=== PATIENT | male | born 1960 | race Caucasian/White ===

== ENCOUNTER 2021-06-17 11:56 | Outpatient (CLI) | payer OTHER, SELFPAY ==
[2021-06-17 12:23] VITALS: BP 136/83; PULSE 100; RESP 18; TEMP 36.8; O2SAT 84
--- NOTE | 2021-06-17 12:25 | PC.NURSE ---
Patient assessed prior to Covid infusion and did not meet criteria due to vital signs. Patient vitals as follows, BP: 136/83, O2: 84% (ranged from 82-86%), Temp: 98.2, HR: 101 bpm, and RR 18. Patient placed on 2L of oxygen via nasal cannula, but O2 saturation didn't go over 91%. Dr. Bliss notified. Patient taken to ER per phone conversation with the doctor. Patient's notified.
[2021-06-17 21:22] LABS: Glucose Point of Care 308 mg/dL (70-110)
[2021-06-21 07:57] LABS: Glucose Point of Care 341 mg/dL (70-110)
[2021-06-21 07:57] LABS: Glucose Point of Care 322 mg/dL (70-110)
[2021-06-21 08:06] LABS: Glucose Point of Care 249 mg/dL (70-110)
[2021-06-21 08:06] LABS: Glucose Point of Care 282 mg/dL (70-110)
[2021-06-21 08:06] LABS: Glucose Point of Care 297 mg/dL (70-110)
[2021-06-21 10:28] LABS: Glucose Point of Care 400 mg/dL (70-110)
== END 2021-06-17 11:57 | disposition home or self-care (01) ==
PROVIDERS: PCP Family Medicine; Visit Provider Nurse Practitioner Family
DX: U07.1 COVID-19 (principal)
CPT/HCPCS: 36416; 82962

== ENCOUNTER 2021-06-17 12:36 | Inpatient (IN) | payer OTHER, SELFPAY ==
[2021-06-17] VITALS (13 sets, daily range): BP systolic 123–151; BP diastolic 78–84; PULSE 90–105; RESP 19–24; TEMP 36.9–38.3; O2SAT 84–96; BMI 27.3; BMI 28.0
--- NOTE | 2021-06-17 13:11 | W.ED.COVID ---
HPI - COVID General: Chief Complaint: COVID symptoms Stated Complaint: WAS HERE FOR BAM: O2 84 Time Seen by Provider: 06/17/21 13:11 Triage information: Has fever, cough or shortness of breath. No known COVID + exposure last 14 days History of Present Illness: HPI Narrative: Mr. Jenkins is a 61-year-old gentleman without significant past medical history presents the emerge department due to hypoxemia. Symptom onset of Covid-like symptoms was approximately 5 days ago after his was Covid positive. He was subsequently tested on Tuesday without further evaluation and test positive. He showed up today to undergo monoclonal antibody treatment however was found to be hypoxemic to 84% on room air. He endorses otherwise typical Covid symptoms. Overall the course of symptoms has remained about the same. He has shortness of breath cough, malaise. No associated chest pain. No other significant changes in health. No other specific exacerbating relieving factors that the patient identifies. COVID Results: No Data to Display Review of Systems General: Reports: 10 or more systems reviewed and unremarkable except in HPI and below Narrative: CONSTITUTIONAL: Positive for fever, fatigue, weakness EYES - denies pain, denies loss of vision EARS - denies ear issues. NOSE - denies congestion or rhinorrhea. THROAT - denies sore throat or difficulty swallowing. CARDIOVASCULAR - denies chest pain and palpitations RESPIRATORY -positive for shortness of breath and cough GASTROINTESTINAL - denies abdominal pain, positive for nausea vomiting, no changes in bowel habits GENITOURINARY - denies dysuria or urinary frequency MUSCULOSKELETAL- denies deformity. Generalized aches and pains. SKIN - denies rashes or new changed skin lesions NEUROLOGIC - denies focal weakness or sensory changes HEMATOLOGIC/LYMPHATIC - denies easy bruising or lymphadenopathy. Physical Exam Narrative: EXAM NARRATIVE: GENERAL/CONSTITUTIONAL -somewhat ill-appearing. No acute distress. Eyes - PERRL, no conjunctival injection ENMT - Atraumatic external nose and ears. Dry mucous membranes NECK - supple. trachea midline CARDIOVASCULAR - regular rate and rhythm. Peripheral pulses 2+ and equal RESPIRATORY -coarse to auscultation bilaterally. No retractions or accessory muscle use. ABDOMEN/GI - Nontender/Nondistended. No tenderness to percussion or evidence of peritonitis MSK - Extremities without obvious deformity or tenderness to palpation SKIN - Warm, Dry NEURO - alert and appropriately oriented. strength and sensation intact. Moves all extremities equally. PSYCH - Appropriate mood and affect Course ED course: - Patient was seen and evaluated by me at bedside - Patient placed on cardiac monitors, IV access obtained - Initial evaluation notable for somewhat ill appearance, supplemental oxygen in place. - Labs notable for mild leukocytosis, ABG with pH 7.43. Chemistry panel with likely evidence of dehydration. Delta troponin negative. - Imaging notable for ED read of chest x-ray with bilateral patchy infiltrates. - Upon serial reexamination after treatment the patient was mildly improved - Based on patient history, evaluation, labs, and imaging as interpreted the most likely cause of the patient's condition is COVID-19 pneumonia resulting in hypoxemia. - The results of ED evaluation were discussed with the patient including plan for admission due to requirement for level of care not available if discharged to prevent significant worsening/deterioration. -Hospitalist service contacted and agreed to admit the patient - Patient was admitted without further deterioration or significant events. Vital Signs: Vital signs: Vital Signs Temperature 97.5 F L 06/19/21 12:00 Pulse Rate 80 06/19/21 12:00 Respiratory Rate 16 06/19/21 12:00 Blood Pressure 98/68 06/19/21 12:00 Pulse Oximetry 92 06/19/21 12:00 MDM - COVID Medical Records: Attestation: I reviewed the patient's medical records. Lab Data: Attestation: I reviewed the patient's lab results. Labs: Lab Results 06/17/21 06/17/21 06/17/21 Range/Units 13:52 13:52 13:52 WBC 11.1 H (4.0-10.0) 10^3/ uL RBC 4.64 (4.1-5.3) 10^6/u L Hgb 13.6 (11.7-16.6) g/dL Hct 40.0 L (42.0-52.0) % MCV 86.2 (80-94) fl MCH 29.3 (28.0-34.0) pg MCHC 34.0 (30.0-36.0) g/dL RDW 12.5 (12.1-15.1) % Plt Count 234 (130-400) 10^3/c mm MPV 10.5 H (7.4-10.4) fL Neut % (Auto) 68.4 % Lymph % (Auto) 24.6 % [place] % (Auto) 6.4 % Eos % (Auto) 0.0 % Baso % (Auto) 0.2 % Neut # (Auto) 7.58 (1.8-7.7) 10^3/u L Lymph # (Auto) 2.7 (0.8-4.8) 10^3/u L [place] # (Auto) 0.7 (0.2-0.9) 10^3/u L Eos # (Auto) 0.0 (0.0-0.8) 10^3/u L Baso # (Auto) 0.0 (0.0-0.1) 10^3/u L Nucleated RBC % (a uto) 0 % Nucleated RBCs # 0.0 /100WBC Specimen Type Sample Site ABG pH (7.35-7.45) ABG pCO2 (35-45) mmHg ABG pO2 (80.0-100.0) mmH g ABG HCO3 (22-26) mmol/L ABG Base Excess (-2.0-2.0) mmol/ L Evaristo Test Hematocrit (42-52) % O2 Delivery Device O2 Liters/Min % FiO2 % Coroner Forensic Technician ID Sodium 127 L (136-145) mmol/L Potassium 4.3 (3.5-5.1) mmol/L Chloride 90 L (98-107) mmol/L Carbon Dioxide 19 L (22-29) mmol/L Anion Gap 22.3 H (5-19) BUN 23 (8-23) mg/dL Creatinine 0.7 (0.7-1.2) mg/dL GFR Calculation 115.0 (90-130) mL/min Glucose 375 H (65-115) mg/dL Calculated Osmolal ity 283 L (285-295) mOsm/k g Lactic Acid (0.5-2.2) mmol/L Calcium 8.3 L (8.5-10.5) mg/dL Total Bilirubin 0.4 (0.15-1.2) mg/dL AST 45 H (0-40) U/L ALT 38 (0-41) U/L Alkaline Phosphata se 93 (40-130) IU/L Troponin T Baselin e 11 (0-15) ng/L Troponin T 120 Min [place] (0-15) ng/L Delta Troponin T (0-10) ABS# C-Reactive Protein 42.3 H (0.0-4.9) mg/L Total Protein 6.8 (6.6-8.7) g/dL Albumin 3.8 (3.5-5.2) g/dL Globulin 3.0 (1.3-4.6) g/dL Procalcitonin 0.50 (0-0.5) ng/mL 06/17/21 06/17/21 06/17/21 Range/Units 14:05 16:12 17:43 WBC (4.0-10.0) 10^3/ uL RBC (4.1-5.3) 10^6/u L Hgb (11.7-16.6) g/dL Hct (42.0-52.0) % MCV (80-94) fl MCH (28.0-34.0) pg MCHC (30.0-36.0) g/dL RDW (12.1-15.1) % Plt Count (130-400) 10^3/c mm MPV (7.4-10.4) fL Neut % (Auto) % Lymph % (Auto) % [place] % (Auto) % Eos % (Auto) % Baso % (Auto) % Neut # (Auto) (1.8-7.7) 10^3/u L Lymph # (Auto) (0.8-4.8) 10^3/u L [place] # (Auto) (0.2-0.9) 10^3/u L Eos # (Auto) (0.0-0.8) 10^3/u L Baso # (Auto) (0.0-0.1) 10^3/u L Nucleated RBC % (a uto) % Nucleated RBCs # /100WBC Specimen Type Arterial Sample Site Brachial, right ABG pH 7.43 (7.35-7.45) ABG pCO2 31.8 L (35-45) mmHg ABG pO2 71.6 L (80.0-100.0) mmH g ABG HCO3 21.0 L (22-26) mmol/L ABG Base Excess -2.5 L (-2.0-2.0) mmol/ L Evaristo Test Pos Hematocrit 40.5 L (42-52) % O2 Delivery Device Nc O2 Liters/Min 4.0 % FiO2 36.0 % Coroner Forensic Technician ID Bd Sodium (136-145) mmol/L Potassium (3.5-5.1) mmol/L Chloride (98-107) mmol/L Carbon Dioxide (22-29) mmol/L Anion Gap (5-19) BUN (8-23) mg/dL Creatinine (0.7-1.2) mg/dL GFR Calculation (90-130) mL/min Glucose (65-115) mg/dL Calculated Osmolal ity (285-295) mOsm/k g Lactic Acid 1.1 (0.5-2.2) mmol/L Calcium (8.5-10.5) mg/dL Total Bilirubin (0.15-1.2) mg/dL AST (0-40) U/L ALT (0-41) U/L Alkaline Phosphata se (40-130) IU/L Troponin T Baselin e (0-15) ng/L Troponin T 120 Min [place] 10.07 (0-15) ng/L Delta Troponin T -0.93 L (0-10) ABS# C-Reactive Protein (0.0-4.9) mg/L Total Protein (6.6-8.7) g/dL Albumin (3.5-5.2) g/dL Globulin (1.3-4.6) g/dL Procalcitonin (0-0.5) ng/mL EKG Data: EKG 1: Attestation: I personally reviewed and interpreted this EKG as follows: EKG interpretation date: 06/17/21 EKG interpretation time: 13:45 Prior EKG tracings: not available for review Ischemic changes: non-specific ST-T wave changes Interpretation: Twelve-lead EKG shows a regular sinus rhythm at a rate of 92. NV interval 160, QRS duration 84, QTc 415. Normal axis. Interpretation: Sinus rhythm, nonspecific ST segment abnormalities in lead III COVID Results: No Data to Display Discharge Plan Discharge Patient Disposition: Admitted As Inpatient Admit Provider: Dylan Nazario Coding Level of Care Code ED Dielectric Tester for [facility] Imani
--- NOTE | 2021-06-17 13:35 | XR_ITS ---
WS: [id number] Portable AP upright chest, 06/17/2021 Clinical Data: covid Comparison: None. Findings: There are moderate bilateral patchy opacities throughout both lungs consistent with acute p neumonia. No nodules, masses or effusions are seen. The heart size is normal. The pulmonary vasculari ty is not remarkable. XR/XR chest 1V portable [id number] Impression: Bilateral patchy opacities in both lungs most consistent with pneumonia.
--- NOTE | 2021-06-17 13:36 | ECG_ITS ---
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 Measurements Intervals [place] Rate: 92 P: 52 [place]: 160 QRS: 52 QRSD: 84 T: 33 QT: 334 QTc: 415 Interpretive Statements SINUS RHYTHM No previous ECG available for comparison Electronically Signed On 06-17-2021 19:38:04 CDT by Ethel Gallo M.D. [id number]
[2021-06-17 14:01] LABS: Basophils % 0.2 %; Hemoglobin 13.6 g/dL (11.7-16.6); Lymphocytes # 2.7 10^3/uL (0.8-4.8); Lymphocytes % 24.6 %; Mean Corpuscular Hemoglobin 29.3 pg (28.0-34.0); Mean Corpuscular Volume 86.2 fl (80-94); Mean Platelet Volume 10.5 fL (7.4-10.4); Monocytes # 0.7 10^3/uL (0.2-0.9); Monocytes % 6.4 %; Neutrophils # 7.58 10^3/uL (1.8-7.7); Neutrophils % 68.4 %; Nucleated Red Blood Cells % 0 %; Platelet Count 234 10^3/cmm (130-400); Red Blood Count 4.64 10^6/uL (4.1-5.3); Red Cell Distribution Width 12.5 % (12.1-15.1); White Blood Count 11.1 10^3/uL (4.0-10.0)
--- NOTE | 2021-06-17 14:12 | PC.PHAR ---
PT STATES HE TAKES CARE OF HIS OWN MEDICATIONS-PT STATES HE HASNT TAKEN MEDS SINCE Tue06/15/21-PT STATES HE TAKES ALEVE 4 TABS (880MG) EVERY AM-
[2021-06-17 14:38] LABS: Lactic Sepsis W/Reflex 1.1 mmol/L (0.5-2.2)
[2021-06-17 14:41] LABS: Troponin(5th) Baseline 11 ng/L (0-15)
[2021-06-17 15:01] LABS: Alanine Aminotransferase 38 U/L (0-41); Albumin Level 3.8 g/dL (3.5-5.2); Alkaline Phosphatase 93 IU/L (40-130); Potassium 4.3 mmol/L (3.5-5.1)
--- NOTE | 2021-06-17 15:07 | PC.NURSE ---
PATIENT RESTING IN BED. PATIENT REQUESTED TO USE THE RESTROOM. A URINAL WAS BROUGHT TO PATIENT. PATIENT HAS NO FURTHER NEEDS AT THIS TIME.
[2021-06-17 15:14] LABS: Blood Urea Nitrogen 23 mg/dL (8-23); Total Bilirubin 0.4 mg/dL (0.15-1.2); Total Protein 6.8 g/dL (6.6-8.7)
[2021-06-17 15:21] LABS: Anion Gap 22.3 (5-19); Carbon Dioxide 19 mmol/L (22-29); Chloride 90 mmol/L (98-107); Glucose 375 mg/dL (65-115); Osmolality Calculated 283 mOsm/kg (285-295); Sodium 127 mmol/L (136-145)
[2021-06-17 15:22] LABS: Aspartate Amino Transferase 45 U/L (0-40); C Reactive Protein 42.3 mg/L (0.0-4.9); Calcium 8.3 mg/dL (8.5-10.5)
[2021-06-17] MEDS: sodium chloride 0.9% 500 ML 999 ML IV (15:55)
[2021-06-17 16:43] LABS: Troponin 5 2HR 10.07 ng/L (0-15)
[2021-06-17 16:49] LABS: Troponin 5 2HR Delta -0.93 ABS# (0-10)
[2021-06-17 17:54] LABS: ABG PCO2 31.8 mmHg (35-45); ABG PH Result 7.43 (7.35-7.45); Arterial Blood Gas Hematocrit 40.5 % (42-52); Base Excess ABG -2.5 mmol/L (-2.0-2.0); Blood Gas Allen Test Pos; Blood Gas Operator Identificat BD; Blood Gas Sample Site Brachial, right; Blood Gas Sample Type Arterial; Oxygen Device NC; PO2 ABG 71.6 mmHg (80.0-100.0)
--- NOTE | 2021-06-17 18:08 | PC.NURSE ---
ENTERED PATIENT ROOM AND SPOKE TO PATIENT'S SPOUSE ON PHONE. PATIENT OXYGEN SATURATION DROPPED TO 87 WHILE TALKING ON THE PHONE WITH HIS ON 4 L O2 NC.
--- NOTE | 2021-06-17 18:11 | PM.HP ---
Providers/Chief Complaint Primary Care Provider: Oc Canales MD Chief Complaint: WAS HERE FOR BAM: O2 84 History of Present Illness Scottie Jenkins is a 61 year old male with PMH of hypothyroidism and DM came in with c/o worsening sob as well as cough , he tested positive for COVID Couple of days back and was here today at the monoclonal antibody infusion center when he was found to be hypoxic to 84% on room air and was hence sent to the ER. Upon arrival in the ER he was worked up for above mention complain. Imaging studies : Xray chest :B/L patchy opacities in both lungs Pertinent labs : WBC: 11.1 H&H: 13/40 PLT Count : 234 ,Serum Na: 127, Serum K: 4.3 , BUN/SCR : 23/0.7 Procalcitonin:Normal ABG :Ph: 7.43, PCO2: 31, PO2:71.6, FIO2:36% Review of Systems Card: Denies: palpitations, edema, swelling of feet/ankles or orthopnea Resp: Denies: wheezing or pain on inspiration GI: Denies: abdominal pain, nausea, vomiting, diarrhea or constipation : Denies: flank pain or difficulty urinating Musc: Denies: back pain, extremity pain or extremity swelling Neuro: Denies: headache(s), difficulty walking or confusion Medications/Allergies Home Medications Medication Instructions Recorded Confirmed Last Taken Type levothyroxine 100 mcg PO QAM 06/17/21 06/17/21 06/15/21 History metformin 850 mg PO BID 06/17/21 06/17/21 06/15/21 History metoprolol succinate 25 mg PO DAILY 06/17/21 06/17/21 06/15/21 History naproxen sodium [Aleve] 880 mg PO QAM 06/17/21 06/17/21 Unknown History pantoprazole 40 mg PO DAILY 06/17/21 06/17/21 06/15/21 History risperidone 0.25 mg PO BEDTIME 06/17/21 06/17/21 06/15/21 History simvastatin 40 mg PO QPM 06/17/21 06/17/21 06/15/21 History venlafaxine 75 mg PO DAILY 06/17/21 06/17/21 06/15/21 History Allergies Allergy/AdvReac Type Severity Reaction Status Date / Time No Known Allergies Allergy Verified 06/17/21 14:12 Vitals/I&O/Wt Last Vital Signs Temp 98.5 F 06/17/21 13:01 Pulse 102 H 06/17/21 18:10 Resp 19 H 06/17/21 13:01 BP 140/83 06/17/21 16:00 Pulse Ox 90 06/17/21 18:10 Weight last 48 hrs Weight 81.647 kg Physical Exam Const: COMMON NORMALS: patient oriented x3 HENMT: COMMON NORMALS: normocephalic and atraumatic HEAD & SCALP: normocephalic and atraumatic Resp: OTHER: B/L Diminished air entry Cardio: COMMON NORMALS: regular rate, regular rhythm, S1 normal heart sound present, S2 normal heart sound present, No gallops present (Cardio), No murmurs present (Cardio), No rub (Cardio) and Peripheral pulses 2+ throughout RATE: regular rate RHYTHM: regular rhythm HEART SOUNDS: S1 normal heart sound present and S2 normal heart sound present PERIPHERAL PULSES: Peripheral pulses 2+ throughout GI: COMMON NORMALS: Normal to inspection, nondistended, normoactive bowel sounds present, Soft to palpation, non-tender, No hepatosplenomegaly present and no masses AUSCULTATION: Yes normoactive bowel sounds PALPATION: Yes Soft to palpation and Yes No hepatosplenomegaly present RECTAL EXAM: Yes deferred Extremity: COMMON NORMALS: no clubbing, cyanosis or edema and no pedal edema Neuro: COMMON NORMALS: patient oriented x3 Data : 06/17/21 13:52 06/17/21 13:52 A&P Assessment and plan (1) Pneumonia due to COVID-19 virus: COVID PNA Currently on COVID Protocol. D -Dimer ESR CRP LDH Ferritin Monitor ABG Monitor Xray chest Dexamethasone 6mg I.V Daily Zinc Vitamin c Albuterol Inhaler Advair Inhaler Certriaxone 1gm I.V Daily Azithromycin 500 mg I.V Daily Incentive Spirometry Flutter Valve Supplemental oxygen Status: Acute (2) Diabetes: Lantus 20 u sc daily bedtime LDSSI Monitor FSG Status: Acute (3) Hypothyroidism: Levothyroxine 100 mcg po daily Status: Acute (4) Hyponatremia: Status: Acute Additional A&P Information DVT PPX:lovenox 40 mg sc daily Code Status :Full code Attestations Medical Necessity Statement*: Patient needs to be in hospital for the management of COVID PNA.Anticipated LOS Greater then 2 midnights. 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
[2021-06-17] MEDS: remdesivir 200 MG in sodium chloride 0.9% (100 ml) 100 ML 100 MG IV (19:19)
[2021-06-17] MEDS: cefTRIAXone 1,000 MG in sodium chloride 0.9% (plus) 50 ML 100 MG IV (20:52)
[2021-06-17] MEDS: enoxaparin 40 mg/0.4 mL Syringe SUBCUT (20:52)
[2021-06-17] MEDS: dexamethasone 4 mg/mL INJ 6 MG IVP (20:53)
[2021-06-17] MEDS: risperiDONE 0.25 mg Tablet PO (21:30)
[2021-06-17] MEDS: azithromycin 500 MG in sodium chloride 0.9% 250 ML 250 MG IV (21:30)
[2021-06-17] MEDS: insulin glargine 100 units/1 mL 20 UNIT SUBCUT (23:08)
[2021-06-18] VITALS (9 sets, daily range): BP systolic 120–128; BP diastolic 68–79; PULSE 75–91; RESP 17–24; TEMP 36.4–37.6; O2SAT 89–97; BMI 28.0
[2021-06-18] MEDS: levothyroxine 50 mcg Tablet 100 MCG PO (05:41)
[2021-06-18 06:17] LABS: Glucose Point of Care 395 mg/dL (70-110)
[2021-06-18] MEDS: metoprolol succinate ER (24 HR) 25 mg Tablet PO (08:57)
[2021-06-18] MEDS: pantoprazole DR 40 mg Tablet PO (08:57)
[2021-06-18] MEDS: venlafaxine ER (24HR) 75 mg Capsule PO (08:57)
[2021-06-18] MEDS: ascorbic acid 500 mg Tablet 1000 MG PO ×2 (08:57→17:51)
[2021-06-18] MEDS: zinc gluconate 50 mg Tablet PO (08:57)
[2021-06-18] MEDS: cholecalciferol (vitamin D3) 1,000 unit Tablet 2000 UNIT PO (08:57)
--- NOTE | 2021-06-18 10:02 | PC.CHAP ---
Pastoral Care Encounter/Spiritual Assessment Type of Contact [] Declined water technician visit [] Patient/Family/Request visit [] Outpatient visit [] Follow-up visit [] Physician referral [] Code/Alert [] Routine visit [] Staff referral [] Actively dying [] Patient sleeping [] Family support [] [] Out of room [] Palliative care [] [] Receiving care in room [] Pre-surgical visit [] Trauma [] Long length of stay [] ICU visit [x] Other: Isolation Relational/Emotional Strength [] Patient feels connected with others/family/visitors/staff [] Distress [] Loneliness/isolation [] Abandonment Spirituality of Patient [] Person of Hui [] Attends Amish of their Hui [] Believes in Prayer [] Reads Bible or Restorationism materials [] There are Spiritual issues to be addressed Superintendent Generating Plant Interventions [] Prayer [] Active listening [] Non-anxious presence [] Spiritual/emotional support [] Crisis/trauma care [] Spiritual counseling [] Bereavement support [] Provided bereavement packet [] Provided Bible/devotional materials [] Provided toy/stuffed animal, coloring book to patient or family member [] Provided Communion [] Anointing/[place] [] Salvation [] Completed spiritual assessment [] Other: Impact on Illness or Injury [] Angry [] Fearful [] Anxious [] Often cries [] Exhaustion [] Unable to work [] Unable to attend church [] Unable to walk/stand [] Unable to read [] Unable to drive [] Unable to eat/drink [] Unable to sleep [] Unable to be with family [] Patient intubated [] Other: Summary Isolation Time spent with patient 5 mins
[2021-06-18 12:02] LABS: Glucose Point of Care 383 mg/dL (70-110)
--- NOTE | 2021-06-18 12:27 | USCV_ITS ---
Scottie Jenkins Age: 61 Gender: M : 1960 Exam Date: 06/18/2021 14:40 Ordering Phys: Dylan Nazario MD Technologist: Exam Location: [facility] [place] Indication: SOB BP: 130 / 70 HR: 71 Rhythm: Sinus Technical Quality: Adequate MEASUREMENTS (Male / Female) Normal Values 2D ECHO LV Diastolic Diameter PLAX 3.5 cm 4.2 - 5.9 / 3.9 - 5.3 cm LV Systolic Diameter PLAX 2.5 cm IVS Diastolic Thickness 0.9 cm 0.6 - 1.0 / 0.6 - 0.9 cm IVS Systolic Thickness 1.2 cm LVPW Diastolic Thickness 1.0 cm 0.6 - 1.0 / 0.6 - 0.9 cm LVPW Systolic Thickness 0.8 cm LVOT Diameter 2.0 cm LV Ejection Fraction 2D Teich 32.7 % LV Ejection Fraction MOD 2C 66.5 % LV Ejection Fraction 2C AL 64.9 % LA Diameter 2.9 cm LA Width 3.3 cm LA Height 3.9 cm Aorta at Sinotubular Diameter 2.7 cm M-MODE MV E Point Septal Separation 1.0 cm DOPPLER AV Peak Velocity 145.0 cm/s LVOT Peak Velocity 95.0 cm/s AV Area Cont Eq vti 2.5 cm squared AV Area Cont Eq pk 2.1 cm squared MV Area PHT 4.9 cm squared Mitral E to A Ratio 0.9 MV E' Velocity 33.5 cm/s Mitral E to MV E' Ratio 8.7 Mitral E to LV E' Lateral Ratio 9.9 Mitral E to LV E' Septal Ratio 7.8 TR Peak Velocity 144.3 cm/s TR Peak Gradient 8.3 mmHg TV Peak E Velocity 68.0 cm/s Right Atrial Pressure 3.0 mmHg Pulmonary Artery Systolic Pressu 11.3 mmHg FINDINGS Left Ventricle Normal left ventricular cavity size. Normal left ventricular systolic function. No regional wall motion abnormalities. Left ventricular ejection fraction is estimated at 60 %. Grade I/IV diastolic dysfunction (abnormal relaxation filling pattern), normal to mildly elevated filling pressures. Right Ventricle The right ventricle is normal in size and function. Right Atrium The right atrium is normal in size. Left Atrium The left atrium is normal in size. Mitral Valve Structurally normal mitral valve without significant stenosis or prolapse. There is no mitral regurgitation. Aortic Valve Structurally normal aortic valve without significant sclerosis or stenosis. There is no aortic regurgitation. Tricuspid Valve Structurally normal tricuspid valve without significant stenosis or regurgitation. Pulmonary artery systolic pressure is normal. Pulmonic Valve Structurally normal pulmonic valve without significant stenosis. There is no pulmonic regurgitation. Pericardium Normal pericardium without effusion. Aorta Normal ascending aorta dimension. CONCLUSIONS 1-Normal left ventricular cavity size. Normal left ventricular systolic function. No regional wall motion abnormalities. Left ventricular ejection fraction is estimated at 60 %. Grade I/IV diastolic dysfunction (abnormal relaxation filling pattern), normal to mildly elevated filling pressures. 2-No significant valve abnormalities. 3-There is no pericardial effusion. 4-Pulmonary artery systolic pressure is within normal limits. 5-Right atrial pressure is around 5 mm of mercury. 6-There are no prior echocardiogram studies to compare. Sheldon Gong MD (Electronically Signed) Final Date: 18 June 2021 18:11 S
--- NOTE | 2021-06-18 12:32 | P.PN_ITS ---
Subjective Subjective: Interval history: Patient was seen and examined this morning, overall he is doing better, currently requiring minimum supplemental oxygen support, he is complaining of minimum shortness of breath as well as cough with exertion. Medications: Reviewed: Yes Vitals/I&O/Wt Last Vital Signs Temp 98.1 F 06/18/21 11:23 Pulse 78 06/18/21 11:23 Resp 18 06/18/21 11:23 BP 121/68 06/18/21 11:23 Pulse Ox 90 06/18/21 11:23 06/17/21 06/18/21 06/18/21 22:59 06:59 14:59 Intake Total 900 / 900 0 / 900 Balance 900 / 900 0 / 900 Weight last 48 hrs Weight 83.574 kg Weight 83.518 kg Weight 81.647 kg Physical Exam Const: COMMON NORMALS: patient oriented x3 HENMT: COMMON NORMALS: normocephalic and atraumatic HEAD & SCALP: normocephalic and atraumatic Resp: OTHER: B/L Diminished air entry Cardio: COMMON NORMALS: regular rate, regular rhythm, S1 normal heart sound present, S2 normal heart sound present, No gallops present (Cardio), No murmurs present (Cardio), No rub (Cardio) and Peripheral pulses 2+ throughout RATE: regular rate RHYTHM: regular rhythm HEART SOUNDS: S1 normal heart sound present and S2 normal heart sound present PERIPHERAL PULSES: Peripheral pulses 2+ throughout GI: COMMON NORMALS: Normal to inspection, nondistended, normoactive bowel sounds present, Soft to palpation, non-tender, No hepatosplenomegaly present and no masses AUSCULTATION: Yes normoactive bowel sounds PALPATION: Yes Soft to palpation and Yes No hepatosplenomegaly present RECTAL EXAM: Yes deferred Extremity: COMMON NORMALS: no clubbing, cyanosis or edema and no pedal edema Neuro: COMMON NORMALS: patient oriented x3 Data : 06/17/21 13:52 06/17/21 13:52 A&P Assessment and plan (1) Pneumonia due to COVID-19 virus: COVID PNA Currently on COVID Protocol. D -Dimer ESR CRP LDH Ferritin Monitor ABG Monitor Xray chest Dexamethasone 6mg I.V Daily Remdesivir 100 MG daily for 5 days Zinc Vitamin c Albuterol Inhaler Advair Inhaler Certriaxone 1gm I.V Daily Azithromycin 500 mg I.V Daily Incentive Spirometry Flutter Valve Supplemental oxygen Status: Acute (2) Diabetes: Lantus 20 u sc daily bedtime Insulin aspart 7 units TIDAC TOVA MDSSI Monitor FSG Status: Acute (3) Hypothyroidism: Levothyroxine 100 mcg po daily Status: Acute (4) Hyponatremia: Status: Acute Additional A&P Information DVT PPX:lovenox 40 mg sc daily Code Status :Full code Attestations Medical Necessity Statement*: Needs to be in hospital for management of Covid pneumonia Coding Level of Care Code 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
[2021-06-18 17:22] LABS: Glucose Point of Care 250 mg/dL (70-110)
[2021-06-18] MEDS: remdesivir 100 MG in sodium chloride 0.9% (100 ml) 100 ML IV (17:51)
[2021-06-18] MEDS: atorvastatin 40 mg Tablet 20 MG PO (17:52)
[2021-06-18] MEDS: cefTRIAXone 1,000 MG in sodium chloride 0.9% (plus) 50 ML 100 MG IV (19:36)
[2021-06-18] MEDS: enoxaparin 40 mg/0.4 mL Syringe SUBCUT (19:38)
[2021-06-18 21:03] LABS: Glucose Point of Care 193 mg/dL (70-110)
[2021-06-18] MEDS: dexamethasone 4 mg/mL INJ 6 MG IVP (21:50)
[2021-06-18 23:45] LABS: Glucose Point of Care 245 mg/dL (70-110)
--- NOTE | 2021-06-18 23:54 | PC.NURSE ---
Accucheck machine not docking and transferring [facility] to [facility], blood sugar noted to be 245 reported to nurse WU Florez.
[2021-06-19] VITALS (9 sets, daily range): BP systolic 98–133; BP diastolic 66–79; PULSE 64–85; RESP 16–22; TEMP 36.4–36.9; O2SAT 88–95
[2021-06-19] MEDS: risperiDONE 0.25 mg Tablet PO ×2 (00:03→23:12)
[2021-06-19] MEDS: insulin glargine 100 units/1 mL 20 UNIT SUBCUT (00:03)
[2021-06-19] MEDS: azithromycin 500 MG in sodium chloride 0.9% 250 ML 250 MG IV ×2 (00:05→22:52)
--- NOTE | 2021-06-19 00:07 | PC.NURSE ---
pt states only pain he has is 'a burning sensation when he coughs.'
--- NOTE | 2021-06-19 00:08 | PC.NURSE ---
pt seen by resp. at this time. changed to 8L oxymask.
--- NOTE | 2021-06-19 01:56 | PC.NURSE ---
morteza coyne stopped azythromycin and flushed iv
[2021-06-19] MEDS: levothyroxine 50 mcg Tablet 100 MCG PO (05:54)
[2021-06-19 06:27] LABS: Glucose Point of Care 329 mg/dL (70-110)
[2021-06-19] MEDS: ascorbic acid 500 mg Tablet 1000 MG PO ×2 (09:14→17:48)
[2021-06-19] MEDS: venlafaxine ER (24HR) 75 mg Capsule PO (09:14)
[2021-06-19] MEDS: metoprolol succinate ER (24 HR) 25 mg Tablet PO (09:14)
[2021-06-19] MEDS: zinc gluconate 50 mg Tablet PO (09:14)
[2021-06-19] MEDS: pantoprazole DR 40 mg Tablet PO (09:14)
[2021-06-19] MEDS: cholecalciferol (vitamin D3) 1,000 unit Tablet 2000 UNIT PO (09:14)
--- NOTE | 2021-06-19 10:48 | PM.PN ---
Subjective Subjective: Interval history: Patient was seen and examined this morning,SOB has slightly worsened,Supplemental oxygen requirement has gone up,also had coughing bouts. Medications: Reviewed: Yes Vitals/I&O/Wt Last Vital Signs Temp 98.4 F 06/19/21 08:00 Pulse 78 06/19/21 09:58 Resp 18 06/19/21 09:42 BP 128/79 06/19/21 08:00 Pulse Ox 89 L 06/19/21 09:42 06/18/21 06/19/21 06/19/21 22:59 06:59 14:59 Intake Total 340 / 820 580 / 1400 300 / 300 Output Total 350 / 350 Balance 340 / 820 230 / 1050 300 / 300 Weight last 48 hrs Weight 83.574 kg Weight 83.518 kg Weight 81.647 kg Physical Exam Const: COMMON NORMALS: patient oriented x3 HENMT: COMMON NORMALS: normocephalic and atraumatic HEAD & SCALP: normocephalic and atraumatic Resp: OTHER: B/L Diminished air entry Cardio: COMMON NORMALS: regular rate, regular rhythm, S1 normal heart sound present, S2 normal heart sound present, No gallops present (Cardio), No murmurs present (Cardio), No rub (Cardio) and Peripheral pulses 2+ throughout RATE: regular rate RHYTHM: regular rhythm HEART SOUNDS: S1 normal heart sound present and S2 normal heart sound present PERIPHERAL PULSES: Peripheral pulses 2+ throughout GI: COMMON NORMALS: Normal to inspection, nondistended, normoactive bowel sounds present, Soft to palpation, non-tender, No hepatosplenomegaly present and no masses AUSCULTATION: Yes normoactive bowel sounds PALPATION: Yes Soft to palpation and Yes No hepatosplenomegaly present RECTAL EXAM: Yes deferred Extremity: COMMON NORMALS: no clubbing, cyanosis or edema and no pedal edema Neuro: COMMON NORMALS: patient oriented x3 Data : 06/19/21 12:07 06/19/21 12:07 A&P Assessment and plan (1) Pneumonia due to COVID-19 virus: COVID PNA Currently on COVID Protocol. D -Dimer ESR CRP LDH Ferritin Monitor ABG Monitor Xray chest Dexamethasone 6mg I.V Daily Remdesivir 100 MG daily for 5 days Zinc Vitamin c Albuterol Inhaler Advair Inhaler Certriaxone 1gm I.V Daily Azithromycin 500 mg I.V Daily Incentive Spirometry Flutter Valve Supplemental oxygen Status: Acute (2) Diabetes: Lantus 30 u sc daily bedtime Insulin aspart 7 units TIDAC [facility] MDSSI Monitor FSG Status: Acute (3) Hypothyroidism: Levothyroxine 100 mcg po daily Status: Acute (4) Hyponatremia: Status: Acute Additional A&P Information DVT PPX:lovenox 40 mg sc daily Code Status :Full code Attestations Medical Necessity Statement*: Patient needs to be in hospital for the management of COVID PNA Coding Level of Care Code Acute Account Solutions Analyst for Chg Fwd Diagnoses Pneumonia due to COVID-19 virus U07.1; J12.82 Diabetes E11.9 Hypothyroidism E03.9 Hyponatremia E87.1
[2021-06-19 12:26] LABS: Basophils % 0.2 %; Hematocrit 37.1 % (42.0-52.0); Hemoglobin 12.1 g/dL (11.7-16.6); Lymphocytes # 1.5 10^3/uL (0.8-4.8); Lymphocytes % 13.1 %; Mean Corpuscular HGB Conc 32.6 g/dL (30.0-36.0); Mean Corpuscular Hemoglobin 29.1 pg (28.0-34.0); Mean Corpuscular Volume 89.2 fl (80-94); Mean Platelet Volume 10.7 fL (7.4-10.4); Monocytes # 0.5 10^3/uL (0.2-0.9); Monocytes % 4.8 %; Neutrophils # 9.11 10^3/uL (1.8-7.7); Neutrophils % 81.5 %; Nucleated Red Blood Cells % 0 %; Platelet Count 261 10^3/cmm (130-400); Red Blood Count 4.16 10^6/uL (4.1-5.3); Red Cell Distribution Width 12.6 % (12.1-15.1); White Blood Count 11.2 10^3/uL (4.0-10.0)
[2021-06-19 12:45] LABS: Anion Gap 18.4 (5-19); Blood Urea Nitrogen 28 mg/dL (8-23); C Reactive Protein 22.9 mg/L (0.0-4.9); Calcium 8.5 mg/dL (8.5-10.5); Carbon Dioxide 21 mmol/L (22-29); Chloride 96 mmol/L (98-107); Ferritin 826 ng/mL (30-400); Glucose 376 mg/dL (65-115); Lactate Dehydrogenase 336 U/L (135-225); Osmolality Calculated 293 mOsm/kg (285-295); Potassium 4.4 mmol/L (3.5-5.1); Sodium 131 mmol/L (136-145)
[2021-06-19 13:32] LABS: D Dimer 0.52 ug/mIFEU (0-0.59)
[2021-06-19 13:54] LABS: Erythrocyte Sedimentation Rate 93 mm/hr (0-10)
--- NOTE | 2021-06-19 15:27 | PC.CHAP ---
Pastoral Care Encounter/Spiritual Assessment Type of Contact [] Declined marketing development specialist visit [] Patient/Family/Request visit [] Outpatient visit [xx] Follow-up visit [] Physician referral [] Code/Alert [] Routine visit [] Staff referral [] Actively dying [] Patient sleeping [] Family support [] [] Out of room [] Palliative care [] [] Receiving care in room [] Pre-surgical visit [] Trauma [] Long length of stay [] ICU visit [xx] Other:ISOLATION Relational/Emotional Strength [] Patient feels connected with others/family/visitors/staff [] Distress [] Loneliness/isolation [] Abandonment Spirituality of Patient [] Person of Hui [] Attends Sabianism of their Hui [] Believes in Prayer [] Reads Bible or Rastafarian materials [] There are Spiritual issues to be addressed Farm General Manager Interventions [] Prayer [] Active listening [] Non-anxious presence [] Spiritual/emotional support [] Crisis/trauma care [] Spiritual counseling [] Bereavement support [] Provided bereavement packet [] Provided Bible/devotional materials [] Provided toy/stuffed animal, coloring book to patient or family member [] Provided Communion [] Anointing/[place] [] Salvation [] Completed spiritual assessment [] Other: Impact on Illness or Injury [] Angry [] Fearful [] Anxious [] Often cries [] Exhaustion [] Unable to work [] Unable to attend yarsanism [] Unable to walk/stand [] Unable to read [] Unable to drive [] Unable to eat/drink [] Unable to sleep [] Unable to be with family [] Patient intubated [] Other: Summary Time spent with patient
[2021-06-19] MEDS: atorvastatin 40 mg Tablet 20 MG PO (17:47)
[2021-06-19] MEDS: remdesivir 100 MG in sodium chloride 0.9% (100 ml) 100 ML IV (17:48)
[2021-06-19] MEDS: guaiFENesin-dextromethorphan UDC 10 mL 5 ML PO (17:57)
[2021-06-19] MEDS: cefTRIAXone 1,000 MG in sodium chloride 0.9% (plus) 50 ML 100 MG IV (22:52)
[2021-06-19] MEDS: enoxaparin 40 mg/0.4 mL Syringe SUBCUT (22:53)
[2021-06-19] MEDS: dexamethasone 4 mg/mL INJ 6 MG IVP (22:53)
[2021-06-19] MEDS: insulin glargine 100 units/1 mL 30 UNIT SUBCUT (22:54)
[2021-06-20] VITALS (10 sets, daily range): BP systolic 118–154; BP diastolic 70–81; PULSE 67–81; RESP 14–20; TEMP 27.2–36.8; O2SAT 83–96
[2021-06-20] MEDS: levothyroxine 50 mcg Tablet 100 MCG PO (06:24)
[2021-06-20 07:56] LABS: Basophils % 0.1 %; Hematocrit 37.8 % (42.0-52.0); Hemoglobin 12.1 g/dL (11.7-16.6); Lymphocytes # 1.2 10^3/uL (0.8-4.8); Lymphocytes % 12.8 %; Mean Corpuscular Hemoglobin 28.6 pg (28.0-34.0); Mean Corpuscular Volume 89.4 fl (80-94); Mean Platelet Volume 11.5 fL (7.4-10.4); Monocytes # 0.3 10^3/uL (0.2-0.9); Neutrophils # 8.09 10^3/uL (1.8-7.7); Neutrophils % 83.5 %; Nucleated Red Blood Cells % 0 %; Platelet Count 261 10^3/cmm (130-400); Red Blood Count 4.23 10^6/uL (4.1-5.3); Red Cell Distribution Width 12.6 % (12.1-15.1); White Blood Count 9.7 10^3/uL (4.0-10.0)
[2021-06-20 08:13] LABS: D Dimer 0.65 ug/mIFEU (0-0.59)
[2021-06-20 08:23] LABS: Blood Urea Nitrogen 23 mg/dL (8-23); C Reactive Protein 13.4 mg/L (0.0-4.9); Calcium 8.5 mg/dL (8.5-10.5); Carbon Dioxide 21 mmol/L (22-29); Chloride 100 mmol/L (98-107); Ferritin 770 ng/mL (30-400); Glomerular Filtration Rate 137.4 mL/min (90-130); Glucose 308 mg/dL (65-115); Osmolality Calculated 295 mOsm/kg (285-295); Sodium 135 mmol/L (136-145)
[2021-06-20] MEDS: venlafaxine ER (24HR) 75 mg Capsule PO (08:27)
[2021-06-20] MEDS: zinc gluconate 50 mg Tablet PO (08:27)
[2021-06-20] MEDS: metoprolol succinate ER (24 HR) 25 mg Tablet PO (08:27)
[2021-06-20] MEDS: ascorbic acid 500 mg Tablet 1000 MG PO ×2 (08:27→17:12)
[2021-06-20] MEDS: cholecalciferol (vitamin D3) 1,000 unit Tablet 2000 UNIT PO (08:27)
[2021-06-20] MEDS: pantoprazole DR 40 mg Tablet PO (08:27)
[2021-06-20 08:28] LABS: Anion Gap 19.1 (5-19); Lactate Dehydrogenase 420 U/L (135-225); Potassium 5.1 mmol/L (3.5-5.1)
[2021-06-20 09:27] LABS: Erythrocyte Sedimentation Rate 91 mm/hr (0-10)
[2021-06-20 10:46] LABS: Slide Review Slide Review Perform
--- NOTE | 2021-06-20 14:31 | PM.PN ---
Subjective Subjective: Interval history: Patient was seen and examined this morning says he is feeling fine.Has Good appetite. Still has coughing and SOB with exertion. Medications: Reviewed: Yes Vitals/I&O/Wt Last Vital Signs Temp 97.9 F 06/20/21 11:50 Pulse 74 06/20/21 11:50 Resp 16 06/20/21 11:50 BP 118/70 06/20/21 11:50 Pulse Ox 83 L 06/20/21 13:30 06/19/21 06/20/21 06/20/21 22:59 06:59 14:59 Intake Total 700 / 1000 240 / 240 Output Total Balance 700 / 1000 239 / 239 Weight last 48 hrs Weight 80.059 kg Physical Exam Const: COMMON NORMALS: patient oriented x3 HENMT: COMMON NORMALS: normocephalic and atraumatic HEAD & SCALP: normocephalic and atraumatic Resp: OTHER: B/L Diminished air entry Cardio: COMMON NORMALS: regular rate, regular rhythm, S1 normal heart sound present, S2 normal heart sound present, No gallops present (Cardio), No murmurs present (Cardio), No rub (Cardio) and Peripheral pulses 2+ throughout RATE: regular rate RHYTHM: regular rhythm HEART SOUNDS: S1 normal heart sound present and S2 normal heart sound present PERIPHERAL PULSES: Peripheral pulses 2+ throughout GI: COMMON NORMALS: Normal to inspection, nondistended, normoactive bowel sounds present, Soft to palpation, non-tender, No hepatosplenomegaly present and no masses AUSCULTATION: Yes normoactive bowel sounds PALPATION: Yes Soft to palpation and Yes No hepatosplenomegaly present RECTAL EXAM: Yes deferred Extremity: COMMON NORMALS: no clubbing, cyanosis or edema and no pedal edema Neuro: COMMON NORMALS: patient oriented x3 Data : 06/20/21 06:49 06/20/21 06:49 A&P Assessment and plan (1) Pneumonia due to COVID-19 virus: COVID PNA Currently on COVID Protocol. D -Dimer ESR CRP LDH Ferritin Monitor ABG Monitor Xray chest Dexamethasone 6mg I.V Daily Remdesivir 100 MG daily for 5 days Zinc Vitamin c Albuterol Inhaler Advair Inhaler Certriaxone 1gm I.V Daily Azithromycin 500 mg I.V Daily Incentive Spirometry Flutter Valve Supplemental oxygen Status: Acute (2) Diabetes: Lantus 30 u sc daily bedtime Insulin aspart 7 units TIDAC [facility] MDSSI Monitor FSG Status: Acute (3) Hypothyroidism: Levothyroxine 100 mcg po daily Status: Acute (4) Hyponatremia: Status: Acute Additional A&P Information DVT PPX:lovenox 40 mg sc daily Code Status :Full code Attestations Medical Necessity Statement*: Patient needs to be in hospital for the management of PNA. Coding Level of Care Code Acute Wet Process [employer] Head for Chg Fwd Diagnoses Pneumonia due to COVID-19 virus U07.1; J12.82 Diabetes E11.9 Hypothyroidism E03.9 Hyponatremia E87.1
[2021-06-20] MEDS: atorvastatin 40 mg Tablet 20 MG PO (17:12)
[2021-06-20] MEDS: remdesivir 100 MG in sodium chloride 0.9% (100 ml) 100 ML IV (17:14)
[2021-06-20] MEDS: cefTRIAXone 1,000 MG in sodium chloride 0.9% (plus) 50 ML 100 MG IV (18:31)
[2021-06-20] MEDS: dexamethasone 4 mg/mL INJ 6 MG IVP (22:20)
[2021-06-20] MEDS: enoxaparin 40 mg/0.4 mL Syringe SUBCUT (22:21)
[2021-06-20] MEDS: azithromycin 500 MG in sodium chloride 0.9% 250 ML 250 MG IV (22:40)
[2021-06-20] MEDS: insulin glargine 100 units/1 mL 30 UNIT SUBCUT (22:40)
[2021-06-20] MEDS: risperiDONE 0.25 mg Tablet PO (22:43)
[2021-06-21] VITALS (8 sets, daily range): BP systolic 126–156; BP diastolic 72–81; PULSE 65–88; RESP 14–20; TEMP 36.4–37.1; O2SAT 92–96
[2021-06-21] MEDS: levothyroxine 50 mcg Tablet 100 MCG PO (05:17)
[2021-06-21 07:57] LABS: Glucose Point of Care 314 mg/dL (70-110)
[2021-06-21 07:57] LABS: Glucose Point of Care 402 mg/dL (70-110)
[2021-06-21 08:08] LABS: Glucose Point of Care 434 mg/dL (70-110)
[2021-06-21 08:35] LABS: Basophils % 0.2 %; Hematocrit 36.4 % (42.0-52.0); Lymphocytes # 1.2 10^3/uL (0.8-4.8); Lymphocytes % 11.7 %; Mean Corpuscular Hemoglobin 29.2 pg (28.0-34.0); Mean Corpuscular Volume 88.6 fl (80-94); Mean Platelet Volume 11.2 fL (7.4-10.4); Monocytes # 0.5 10^3/uL (0.2-0.9); Monocytes % 4.3 %; Neutrophils # 8.78 10^3/uL (1.8-7.7); Neutrophils % 83.3 %; Nucleated Red Blood Cells % 0 %; Platelet Count 307 10^3/cmm (130-400); Red Blood Count 4.11 10^6/uL (4.1-5.3); Red Cell Distribution Width 12.5 % (12.1-15.1); White Blood Count 10.5 10^3/uL (4.0-10.0)
[2021-06-21 08:41] LABS: D Dimer 0.73 ug/mIFEU (0-0.59)
[2021-06-21] MEDS: ascorbic acid 500 mg Tablet 1000 MG PO ×2 (08:41→17:14)
[2021-06-21] MEDS: cholecalciferol (vitamin D3) 1,000 unit Tablet 2000 UNIT PO (08:42)
[2021-06-21] MEDS: venlafaxine ER (24HR) 75 mg Capsule PO (08:42)
[2021-06-21] MEDS: pantoprazole DR 40 mg Tablet PO (08:42)
[2021-06-21] MEDS: metoprolol succinate ER (24 HR) 25 mg Tablet PO (08:42)
[2021-06-21] MEDS: zinc gluconate 50 mg Tablet PO (08:42)
[2021-06-21] MEDS: guaiFENesin-dextromethorphan UDC 10 mL 5 ML PO ×4 (09:34→20:39)
[2021-06-21] MEDS: benzonatate 100 mg Capsule PO (09:35)
[2021-06-21 10:07] LABS: Blood Urea Nitrogen 21 mg/dL (8-23); C Reactive Protein 12.1 mg/L (0.0-4.9); Calcium 8.3 mg/dL (8.5-10.5); Carbon Dioxide 23 mmol/L (22-29); Chloride 98 mmol/L (98-107); Ferritin 622 ng/mL (30-400); Glomerular Filtration Rate 169.6 mL/min (90-130); Glucose 273 mg/dL (65-115); Osmolality Calculated 287 mOsm/kg (285-295); Sodium 132 mmol/L (136-145)
--- NOTE | 2021-06-21 10:08 | XRR_ITS ---
PROCEDURE INFORMATION: Exam: XR Chest Exam date and time: 06/21/2021 10:08 AM Age: 61 years old Clinical indication: Shortness of breath; Additional info: Pna TECHNIQUE: Imaging protocol: XR of the chest. Views: 1 view. Total images: 1 COMPARISON: CR XR chest 1V portable [id number] 06/17/2021 1:55 PM FINDINGS: Lungs: Bilateral pulmonary opacities are again noted and have shown interval worsening from the prior exam. Pleural spaces: Unremarkable. No pleural effusion. No pneumothorax. Heart/Mediastinum: Heart size is stable when compared to the prior exam. Bones/joints: Osseous structures are unchanged from the prior exam. XR/XR chest 1V portable [id number] IMPRESSION: Bilateral pulmonary opacities are again noted and have shown interval worsening from the prior exam.
[2021-06-21 10:18] LABS: Anion Gap 15.9 (5-19); Lactate Dehydrogenase 406 U/L (135-225); Potassium 4.9 mmol/L (3.5-5.1)
[2021-06-21 10:49] LABS: Erythrocyte Sedimentation Rate 90 mm/hr (0-10)
--- NOTE | 2021-06-21 11:40 | P.PN_ITS ---
Subjective Subjective: Interval history: Patient was seen and examined this morning overall he is doing better. Supplemental oxygen requirement has remained stable. Appetite is improving, encouraged him to move to chair today and spend some time sitting. Medications: Reviewed: Yes Vitals/I&O/Wt Last Vital Signs Temp 98.4 F 06/21/21 11:17 Pulse 75 06/21/21 11:17 Resp 15 06/21/21 11:17 BP 130/72 06/21/21 11:17 Pulse Ox 95 06/21/21 11:17 06/20/21 06/21/21 06/21/21 22:59 06:59 14:59 Intake Total 340 / 820 60 / 880 780 / 780 Output Total 625 / 625 Balance 340 / 819 60 / 879 155 / 155 Weight last 48 hrs Weight 80.059 kg Physical Exam Const: COMMON NORMALS: patient oriented x3 HENMT: COMMON NORMALS: normocephalic and atraumatic HEAD & SCALP: normocephalic and atraumatic Resp: OTHER: B/L Diminished air entry Cardio: COMMON NORMALS: regular rate, regular rhythm, S1 normal heart sound present, S2 normal heart sound present, No gallops present (Cardio), No murmurs present (Cardio), No rub (Cardio) and Peripheral pulses 2+ throughout RATE: regular rate RHYTHM: regular rhythm HEART SOUNDS: S1 normal heart sound present and S2 normal heart sound present PERIPHERAL PULSES: Peripheral pulses 2+ throughout GI: COMMON NORMALS: Normal to inspection, nondistended, normoactive bowel sounds present, Soft to palpation, non-tender, No hepatosplenomegaly present and no masses AUSCULTATION: Yes normoactive bowel sounds PALPATION: Yes Soft to palpation and Yes No hepatosplenomegaly present RECTAL EXAM: Yes deferred Extremity: COMMON NORMALS: no clubbing, cyanosis or edema and no pedal edema Neuro: COMMON NORMALS: patient oriented x3 Data : 06/21/21 07:48 06/21/21 07:48 A&P Assessment and plan (1) Pneumonia due to COVID-19 virus: COVID PNA Currently on COVID Protocol. D -Dimer: 0.73 ESR: 90 CRP:12.1 LDH:406 Ferritin : 622 Monitor ABG Monitor Xray chest: Persistent bilateral pulmonary opacities Dexamethasone 6mg I.V Daily Remdesivir 100 MG daily for 5 days Zinc Vitamin c Albuterol Inhaler Advair Inhaler Certriaxone 1gm I.V Daily Azithromycin 500 mg I.V Daily Incentive Spirometry Flutter Valve Supplemental oxygen Status: Acute (2) Diabetes: Lantus 40 u sc daily bedtime Insulin aspart 12 units TIDAC [facility] MDSSI Monitor FSG Status: Acute (3) Hypothyroidism: Levothyroxine 100 mcg po daily Status: Acute (4) Hyponatremia: Status: Acute Additional A&P Information DVT PPX:lovenox 40 mg sc daily Code Status :Full code Attestations Medical Necessity Statement*: Patient is to be in hospital for management of Covid pneumonia. Coding Level of Care Code Acute Insurance Loss Control Surveyor for [facility] Fwd Diagnoses Pneumonia due to COVID-19 virus U07.1; J12.82 Diabetes E11.9 Hypothyroidism E03.9 Hyponatremia E87.1
[2021-06-21 16:56] LABS: Glucose Point of Care 199 mg/dL (70-110)
[2021-06-21] MEDS: remdesivir 100 MG in sodium chloride 0.9% (100 ml) 100 ML IV (17:13)
[2021-06-21] MEDS: atorvastatin 40 mg Tablet 20 MG PO (17:13)
--- NOTE | 2021-06-21 17:43 | PC.RESP ---
RT Shift Note Frequent safety and respiratory rounds continue. Orders completed as indicated. Patient monitored pre and post treatments throughout shift. Patient tolerated treatments appropriately. Condition did not change. Patient and/or mortician supplies sales representative educated on respiratory treatment and medications. Patient and/or mortician supplies sales representative verbalized understanding. Will continue to monitor patient progress.
[2021-06-21] MEDS: cefTRIAXone 1,000 MG in sodium chloride 0.9% (plus) 50 ML 100 MG IV (18:36)
[2021-06-21] MEDS: azithromycin 500 MG in sodium chloride 0.9% 250 ML 250 MG IV (20:15)
[2021-06-21] MEDS: enoxaparin 40 mg/0.4 mL Syringe SUBCUT (20:16)
[2021-06-21] MEDS: risperiDONE 0.25 mg Tablet PO (20:17)
[2021-06-21] MEDS: dexamethasone 4 mg/mL INJ 6 MG IVP (20:44)
[2021-06-21 20:57] LABS: Glucose Point of Care 107 mg/dL (70-110)
--- NOTE | 2021-06-21 21:59 | PC.NURSE ---
Novolog and Lantus was held since patient blood sugar was 107.
[2021-06-22] VITALS (7 sets, daily range): BP systolic 120–140; BP diastolic 75–80; PULSE 66–76; RESP 14–20; TEMP 36.5–37.5; O2SAT 86–93
[2021-06-22] MEDS: guaiFENesin-dextromethorphan UDC 10 mL 5 ML PO ×4 (02:36→12:28)
--- NOTE | 2021-06-22 04:52 | XRR_ITS ---
PROCEDURE INFORMATION: Exam: XR Chest Exam date and time: 06/22/2021 4:52 AM Age: 61 years old Clinical indication: Other: Covid follow up TECHNIQUE: Imaging protocol: XR of the chest. Views: 1 view. COMPARISON: CR (CHEST, ) 06/21/2021 10:52 AM FINDINGS: Lungs: Interval worsening of bilateral airspace opacities. No large pleural effusion or pneumothorax. Pleural spaces: See Lungs finding. Heart/Mediastinum: Stable cardiomediastinal silhouette. Bones/joints: No acute osseous injury identified. XR/XR chest 1V portable [id number] IMPRESSION: Interval worsening of bilateral airspace opacities.
[2021-06-22] MEDS: levothyroxine 50 mcg Tablet 100 MCG PO (05:49)
[2021-06-22 06:42] LABS: Basophils % 0.1 %; Hematocrit 35.1 % (42.0-52.0); Hemoglobin 11.5 g/dL (11.7-16.6); Lymphocytes # 1.2 10^3/uL (0.8-4.8); Lymphocytes % 12.8 %; Mean Corpuscular HGB Conc 32.8 g/dL (30.0-36.0); Mean Corpuscular Hemoglobin 28.8 pg (28.0-34.0); Mean Corpuscular Volume 87.8 fl (80-94); Mean Platelet Volume 10.9 fL (7.4-10.4); Monocytes # 0.3 10^3/uL (0.2-0.9); Monocytes % 3.1 %; Neutrophils # 7.83 10^3/uL (1.8-7.7); Neutrophils % 83.3 %; Nucleated Red Blood Cells % 0 %; Platelet Count 331 10^3/cmm (130-400); Red Cell Distribution Width 12.3 % (12.1-15.1); White Blood Count 9.4 10^3/uL (4.0-10.0)
[2021-06-22 06:43] LABS: Glucose Point of Care 321 mg/dL (70-110)
[2021-06-22 07:09] LABS: Anion Gap 16.4 (5-19); Blood Urea Nitrogen 20 mg/dL (8-23); Carbon Dioxide 23 mmol/L (22-29); Chloride 99 mmol/L (98-107); Glomerular Filtration Rate 169.6 mL/min (90-130); Glucose 288 mg/dL (65-115); Osmolality Calculated 291 mOsm/kg (285-295); Potassium 4.4 mmol/L (3.5-5.1); Sodium 134 mmol/L (136-145)
[2021-06-22] MEDS: cholecalciferol (vitamin D3) 1,000 unit Tablet 2000 UNIT PO (08:58)
[2021-06-22] MEDS: zinc gluconate 50 mg Tablet PO (08:58)
[2021-06-22] MEDS: metoprolol succinate ER (24 HR) 25 mg Tablet PO (08:58)
[2021-06-22] MEDS: venlafaxine ER (24HR) 75 mg Capsule PO (08:58)
[2021-06-22] MEDS: ascorbic acid 500 mg Tablet 1000 MG PO (08:58)
[2021-06-22] MEDS: pantoprazole DR 40 mg Tablet PO (08:58)
--- NOTE | 2021-06-22 11:53 | PM.DCS ---
Discharge Providers Date of Admission: 06/17/21 17:49 Date of Discharge: June 22, 2021 Attending Provider at Admission: Dylan Nazario MD Attending Provider at Discharge: Sheldon Downs MD Primary Care Provider: Oc Canales MD Diagnoses at Discharge Discharge Diagnosis (1) Pneumonia due to COVID-19 virus: Status: Acute (2) Diabetes: Status: Acute (3) Hypothyroidism: Status: Acute (4) Hyponatremia: Status: Acute Reason for Visit Reason for Visit: WAS HERE FOR BAM: O2 84 Hospital Course Hospital Course HPI by Dr. Aravind Rubin Gregory is a 61 year old male with PMH of hypothyroidism and DM came in with c/o worsening sob as well as cough , he tested positive for COVID Couple of days back and was here today at the [facility] antibody infusion center when he was found to be hypoxic to 84% on room air and was hence sent to the ER. Upon arrival in the ER he was worked up for above mention complain. Imaging studies : Xray chest :B/L patchy opacities in both lungs Pertinent labs : WBC: 11.1 H&H: 13/40 PLT Count : 234 ,Serum Na: 127, Serum K: 4.3 , BUN/SCR : 23/0.7 Procalcitonin:Normal ABG :Ph: 7.43, PCO2: 31, PO2:71.6, FIO2:36% Hospital course Patient was admitted for management of hypoxia related to COVID-19 he finished remdesivir and Decadron regimen, after 5 days he was requiring 5 to 6 L of oxygen and was eager to go home. He will be discharged home with Medrol pack and albuterol rescue inhaler for as needed use. White count 9.4 hemodynamically stable, CRP 12, D-dimer 0.7 CTA chest was not pursued during hospitalization. During his hospitalization he received empirical ceftriaxone and azithromycin, no antibiotics will be given at the time of discharge. He can take multivitamins zinc, vitamin C at home. Physical Exam Narrative: EXAM NARRATIVE: COMMON NORMALS: patient oriented x3 HENMT: COMMON NORMALS: normocephalic and atraumatic HEAD & SCALP: normocephalic and atraumatic Resp: OTHER: B/L Diminished air entry, requiring 5 to 6 L nasal cannula oxygen Cardio: COMMON NORMALS: regular rate, regular rhythm, S1 normal heart sound present, S2 normal heart sound present, No gallops present (Cardio), No murmurs present (Cardio), No rub (Cardio) and Peripheral pulses 2+ throughout RATE: regular rate RHYTHM: regular rhythm HEART SOUNDS: S1 normal heart sound present and S2 normal heart sound present PERIPHERAL PULSES: Peripheral pulses 2+ throughout GI: COMMON NORMALS: Normal to inspection, nondistended, normoactive bowel sounds present, Soft to palpation, non-tender, No hepatosplenomegaly present and no masses AUSCULTATION: Yes normoactive bowel sounds PALPATION: Yes Soft to palpation and Yes No hepatosplenomegaly present RECTAL EXAM: Yes deferred Extremity: COMMON NORMALS: no clubbing, cyanosis or edema and no pedal edema Patient oriented x3 Discharge Data Data Completed and Pending: Completed Studies During Hospitalization Category Date Time Status XR chest 1V marisol ble [id number] Routine Exams 06/21/21 10:08 Completed XR chest 1V marisol ble [id number] Routine Exams 06/22/21 04:52 Completed XR chest 1V marisol ble [id number] Urgent Exams 06/17/21 13:35 Completed CV. echo complete * [id number] Routine Ultrasound 06/18/21 12:27 Completed Pending at discharge Category Date Time Status Basic Metabolic P genia AM LABS Lab 06/23/21 04:00 Ordered Basic Metabolic P genia AM LABS Lab 06/24/21 04:00 Ordered Complete Blood Co unt w/Auto AM LABS Lab 06/23/21 04:00 Ordered Complete Blood Co unt w/Auto AM LABS Lab 06/24/21 04:00 Ordered Labs from last 24 hours 06/22/21 06/22/21 06/22/21 06:39 06:15 06:15 WBC 9.4 RBC 4.00 L Hgb 11.5 L Hct 35.1 L MCV 87.8 MCH 28.8 MCHC 32.8 RDW 12.3 Plt Count 331 MPV 10.9 H Neut % (Auto) 83.3 Lymph % (Auto) 12.8 [place] % (Auto) 3.1 Eos % (Auto) 0.0 Baso % (Auto) 0.1 Neut # (Auto) 7.83 H Lymph # (Auto) 1.2 [place] # (Auto) 0.3 Eos # (Auto) 0.0 Baso # (Auto) 0.0 Nucleated RBC % (a uto) 0 Nucleated RBCs # 0.0 Sodium 134 L Potassium 4.4 Chloride 99 Carbon Dioxide 23 Anion Gap 16.4 BUN 20 Creatinine 0.5 L GFR Calculation 169.6 H Glucose 288 H POC Glucose 321 H Calculated Osmolal ity 291 Calcium 8.0 L 06/21/21 06/21/21 20:33 16:46 WBC RBC Hgb Hct MCV MCH MCHC RDW Plt Count MPV Neut % (Auto) Lymph % (Auto) [place] % (Auto) Eos % (Auto) Baso % (Auto) Neut # (Auto) Lymph # (Auto) [place] # (Auto) Eos # (Auto) Baso # (Auto) Nucleated RBC % (a uto) Nucleated RBCs # Sodium Potassium Chloride Carbon Dioxide Anion Gap BUN Creatinine GFR Calculation Glucose POC Glucose 107 199 H Calculated Osmolal ity Calcium Vitals: Last Vital Signs Temp 97.7 F 06/22/21 11:21 Pulse 74 06/22/21 11:21 Resp 18 06/22/21 11:21 BP 120/75 06/22/21 11:21 Pulse Ox 90 06/22/21 11:21 Discharge Plan Discharge Patient Disposition: Home Condition: Stable Prescriptions: New Medrol (Jimbo) 4 mg tablets,dose pack See Rx Instructions .ROUTE .COMPLEX Qty: 21 RF: 0 albuterol sulfate 90 mcg/actuation HFA aerosol inhaler 1 inh inhalation Q6H PRN (Reason: shortness of breath or wheezing) Qty: 6.7 RF: 1 Continued venlafaxine 75 mg capsule,extended release 24hr 75 mg PO DAILY RF: 0 metformin 850 mg tablet 850 mg PO BID RF: 0 risperidone 0.25 mg tablet 0.25 mg PO BEDTIME RF: 0 simvastatin 40 mg tablet 40 mg PO QPM RF: 0 levothyroxine 50 mcg tablet 100 mcg PO QAM RF: 0 pantoprazole 40 mg tablet,delayed release (DR/EC) 40 mg PO DAILY RF: 0 Aleve 220 mg Tablet 880 mg PO QAM RF: 0 metoprolol succinate 25 mg tablet extended release 24 hr 25 mg PO DAILY RF: 0 Discharge Orders: Discharge Order (Routine); Ordered 06/22/21 Ordered By: Sheldon Downs Other Ambulatory Orders: DME: Oxygen (Order) Location: None Selected Ordered By: Sheldon Downs Referrals: Oc Canales MD [Primary Care Provider] - Discharge Diet: Cardiac Discharge Activity: Increase activity as tolerated Patient Instructions: Opioid Safety Discharge Attestations Time Spent in Discharge Care*: less than 30 min Quality Metrics Clinical Quality Measures During this hospital stay, did patient experience: None Coding Level of Care Code Acute Chg FW DC note Diagnoses Pneumonia due to COVID-19 virus U07.1; J12.82 Diabetes E11.9 Hypothyroidism E03.9 Hyponatremia E87.1
[2021-06-22 11:59] LABS: Glucose Point of Care 241 mg/dL (70-110)
--- NOTE | 2021-06-22 14:06 | PC.NURSE ---
Discharge Note Patient discharged to home via personal vehicle accompanied by . Discharge instructions reviewed with patient and/or it sales representative. Mobile pharmacy medications and/or prescriptions provided. Belongings/home medications returned.
--- NOTE | 2021-06-23 15:15 | PC.SOCIAL ---
discharge follow up call made. patient continues to use O2 at 6L. Attempted to make follow up appointment with Dr. Canales, his office will call patient due to pt needing virtual visit. patient made aware that he needs to remain in quarantine until 07-01-21.
--- NOTE | 2021-06-24 10:56 | PC.SOCIAL ---
called pt to give him date and time of follow up appointment, video appointment, with ZAKI Espinal, Dr. Canales's DEMAND GENERATOR MANAGER
== END 2021-06-22 14:36 | disposition home or self-care (01) | DRG 177 ==
LOC: ER 18:12 → MEDSURG 06-18 09:42
PROVIDERS: Admitting Provider Internal Medicine; Emergency Provider Emergency Medicine; PCP Family Medicine; Visit Provider Internal Medicine
DX: U07.1 COVID-19 (principal); J12.82 Pneumonia due to coronavirus disease 2019; E87.1 Hypo-osmolality and hyponatremia; E03.9 Hypothyroidism, unspecified; E11.9 Type 2 diabetes mellitus without complications; R09.02 Hypoxemia; Z79.890 Hormone replacement therapy; Z79.4 Long term (current) use of insulin
CPT/HCPCS: 36415; 36416; 36600; 71045; 80048; 80053; 82728; 82803; 82962; 83605; 83615; 84145; 84484; 85025; 85378; 85651; 86140; 93005; 93306; 94640; 96365; 96367; 96372; 99285; J0456; J0696; J1100; J1650; J1815 ×2; J7040; J7050

== ENCOUNTER 2024-09-28 17:56 | Emergency (ER) | payer OTHER, SELFPAY ==
[2024-09-28 18:00] VITALS: BP 149/91; PULSE 89; RESP 18; TEMP 36.7; O2SAT 98; BMI 27.3
[2024-09-28 18:06] VITALS: BP 149/91; PULSE 89; RESP 18; TEMP 36.7; O2SAT 98
--- NOTE | 2024-09-28 18:26 | ED_ITS ---
HPI - Skin/Abscess/Foreign Bdy General: Chief complaint: Skin/Abscess/Foreign Body Stated complaint: right side jaw swollen Time Seen by Provider: 09/28/24 18:21 History of Present Illness: Patient presents to the ER with swelling to the right side of his jaw region. This area is red and head on up there is no obvious fluctuance or drainage. Patient states has been going on for about a week and been getting worse. Patient does not have any problems breathing or swallowing. Patient is not allergic to any medications. Related Data Home Medications Medication Instructions Recorded Confirmed levothyroxine 50 mcg tablet 100 mcg PO QAM 06/17/21 06/17/21 metformin 850 mg tablet 850 mg PO BID 06/17/21 06/17/21 metoprolol succinate 25 mg 25 mg PO DAILY 06/17/21 06/17/21 tablet,extended release 24 hr naproxen sodium 220 mg tablet 880 mg PO QAM 06/17/21 06/17/21 (Aleve) pantoprazole 40 mg tablet,delayed 40 mg PO DAILY 06/17/21 06/17/21 release risperidone 0.25 mg tablet 0.25 mg PO BEDTIME 06/17/21 06/17/21 simvastatin 40 mg tablet 40 mg PO QPM 06/17/21 06/17/21 venlafaxine 75 mg capsule,extended 75 mg PO DAILY 06/17/21 06/17/21 release 24 hr Previous Rx's Medication Instructions Recorded albuterol sulfate 90 mcg/actuation 1 inh inhalation Q6H PRN shortness 06/22/21 aerosol inhaler of breath or wheezing #6.7 grams methylprednisolone 4 mg tablets in See Rx Instructions PO .COMPLEX 06/22/21 a dose pack (Medrol (Jimbo)) #21 ea cephalexin 500 mg capsule 500 mg PO Q6H 7 days #28 caps 09/28/24 Allergies Allergy/AdvReac Type Severity Reaction Status Date / Time No Known Allergies Allergy Verified 06/17/21 14:12 Review of Systems General: Reports: 10 or more systems reviewed and unremarkable except in HPI and below PFSH ED PFSH: Medical History Hypothyroidism Diabetes Pneumonia due to COVID-19 virus Physical Exam Const: COMMON NORMALS: no acute distress, average body habitus, patient oriented x3, no limitations, healthy appearing, alert and well nourished HENMT: COMMON NORMALS: atraumatic, hearing grossly normal bilaterally, external ears normal, Normal external nose present and moist oral mucous membranes HEAD & SCALP: atraumatic NOSE: Normal external nose present EXTERNAL EAR: Yes external ears normal OTHER: Red swollen indurated area with small head on the wood but no obvious fluctuance in right lateral commissure of cheek area Eye: COMMON NORMALS: Equal, round and reactive pupils present, EOMs intact bilaterally, conjunctivae normal and no scleral icterus CONJUNCTIVA: Yes conjunctivae normal PUPIL: Yes Equal, round and reactive pupils present Neck/C-Spine: COMMON NORMALS: full ROM, no lymphadenopathy, supple, no meningeal signs, no JVD and Thyroid normal THYROID: Thyroid normal Chest: COMMONS NORMALS: normal inspection of the chest and normal palpation of entire chest wall Resp: COMMON NORMALS: normal respiratory effort, No retractions, No use of accessory muscles and clear to auscultation bilaterally AUSCULTATION: clear to auscultation bilaterally Cardio: COMMON NORMALS: no JVD, regular rate, regular rhythm, S1 normal heart sound present, S2 normal heart sound present, No gallops present (Cardio), No clicks present (Cardio), No murmurs present (Cardio) and No rub (Cardio) RATE: regular rate RHYTHM: regular rhythm HEART SOUNDS: S1 normal heart sound present and S2 normal heart sound present Neuro: COMMON NORMALS: patient oriented x3 SENSORIUM/ORIENTATION: Yes alert MENINGEAL SIGNS: Yes no meningeal signs Course Vital Signs: Vital signs: Vital Signs Temperature 98.0 F 09/28/24 18:06 Pulse Rate 89 09/28/24 18:06 Respiratory Rate 18 09/28/24 18:06 Blood Pressure 149/91 09/28/24 18:06 Pulse Oximetry 98 09/28/24 18:06 Oxygen Delivery Me thod Room Air 09/28/24 18:06 MDM - Skin/Abscess/Foreign Bdy Medicial Decision Making Patient was given Keflex here and be discharged on Keflex. Medical Records I reviewed the patient's medical records. Lab Data I reviewed the patient's lab results. No radiology studies performed this visit Discharge Plan Discharge Patient Disposition: Home Clinical Impression: Cellulitis Qualifiers: Site of cellulitis: face Qualified Code(s): L03.211 - Cellulitis of face Condition: Stable Prescriptions: New cephalexin 500 mg capsule 500 mg PO Q6H 7 Days Qty: 28 0RF No Action venlafaxine 75 mg capsule,extended release 24hr 75 mg PO DAILY metformin 850 mg tablet 850 mg PO BID risperidone 0.25 mg tablet 0.25 mg PO BEDTIME simvastatin 40 mg tablet 40 mg PO QPM levothyroxine 50 mcg tablet 100 mcg PO QAM pantoprazole 40 mg tablet,delayed release (DR/EC) 40 mg PO DAILY Aleve 220 mg Tablet 880 mg PO QAM metoprolol succinate 25 mg tablet extended release 24 hr 25 mg PO DAILY Medrol (Jimbo) 4 mg tablets,dose pack See Rx Instructions .ROUTE .COMPLEX Qty: 21 0RF Rx Instructions: orally per package directions albuterol sulfate 90 mcg/actuation HFA aerosol inhaler 1 inh inhalation Q6H PRN (Reason: shortness of breath or wheezing) Qty: 6.7 1RF Discharge Orders: Discharge ED (Routine); Ordered 09/28/24 Ordered By: Chucho Sargent Referrals: Oc Canales MD [Primary Care Provider] - 1 week Patient Instructions: Cellulitis Activity Restrictions/Additional Instructions: Thank you for choosing [facility] for your healthcare needs today. Please realize that you were seen in the emergency department and that we are providing you with an emergency medical screening exam and this may not be a complete and all exclusive of all testing and/or medical workup we may need to determine your element or severity of your illness. It is very important that you follow-up as instructed with your primary care provider or specialist for the additional evaluation and to discuss your medical treatment plan. You may return to the emergency department should you have concerns or if your condition changes or worsens in any way. Coding Level of Care Code ED Mobile Nurse for Kalpesh Diallo
[2024-09-28 18:46] VITALS: PULSE 83; O2SAT 99
[2024-09-28] MEDS: cephALEXin 500 mg Capsule PO (18:46)
== END 2024-09-28 18:47 | disposition home or self-care (01) ==
PROVIDERS: Emergency Provider Emergency Medicine; PCP Family Medicine
DX: L03.211 Cellulitis of face (principal); Z79.84 Long term (current) use of oral hypoglycemic drugs
CPT/HCPCS: 99283